=== PATIENT | male | born 2000 | race Caucasian/White ===

== ENCOUNTER 2019-02-17 13:57 | Outpatient (CLI) | payer BC ==
[2019-02-17 14:22] LABS: Anion Gap 14 mmol/L (10-20); BUN (Urea Nitrogen) 16 mg/dL (8.9-20.6); Calc. Creatinine Clearance 0 mL/min (70-130); Carbon Dioxide 30 mmol/L (22-29); Chloride 99 mmol/L (98-107); Estimated GFR-MDRD 57; Glucose 63 mg/dL (70-105); Potassium 3.2 mmol/L (3.5-5.1); Sodium 140 mmol/L (136-145)
--- NOTE | 2019-02-17 14:35 | ULT ---
EXAM: US Renal Bilateral STANDARD PROVIDED CLINICAL HISTORY: Renal calculi COMPARISON: None FINDINGS: Right kidney measures about 10.4 x 5.9 x 4.9 cm and demonstrates no evidence for hydronephrosis, sono graphically apparent calculus or mass. Left kidney measures about 11.7 x 5.4 x 5.7 cm and demonstrates no evidence for hydronephrosis, sonog raphically apparent calculus or mass. A simple appearing 1.6 cm superior pole cyst is seen. The urinary bladder appears sonographically unremarkable. IMPRESSION: No evidence for hydronephrosis.
--- NOTE | 2019-02-17 14:36 | RAD ---
EXAM: XR Abdomen 1 View/KUB PROVIDED CLINICAL HISTORY: Renal calculi COMPARISON: None FINDINGS: The visualized lung bases appear clear. The abdominal bowel gas pattern is nonspecific. Phlebolith ov erlies right hemipelvis. No radiographically apparent urinary tract calculi. The osseous structures demonstrate no acute findings. IMPRESSION: No radiographically apparent urinary tract calculi.
== END 2019-02-17 13:58 | disposition home or self-care (01) ==
LOC: SCSULT 13:57
PROVIDERS: ATTEND Urology
DX: N20.0 Calculus of kidney (principal)
CPT/HCPCS: 36415; 74018; 76770; 80048